=== PATIENT | male | born 1945 | race Caucasian/White ===

== ENCOUNTER 2025-02-26 16:50 | Emergency (ER) | payer MEDICARE, OTHER, SELFPAY ==
--- OUTSIDE RECORDS SUMMARY | 2020-01-22 04:01 | XMS_ITS | Continuity of Care Document ---
Author Organization [facility] Address [address] [address] [place] [address] Phone Care Team Providers Care Supervisor Typesetting Name Role Phone Tennille Goff CRNA Unavailable Unavailable Allergies, Adverse Reactions, Alerts Substance Reaction Status Criticality No Known Allergies Active No Inform ation Medications Medication Instructions Dosage Effective Dates (start - stop) Status Comments atorvastatin 20 mg tablet take 1 tablet by oral route every day 20 MG - Active Synthroid 25 mcg tablet take 1 tablet by oral route every day 25 MCG - Active ATENOLOL (unknown strength) take 1 tablet by oral route every day Not Available - Active Vitamin D3 50 mcg (2,000 unit) capsule take 1 by Oral route every day 1 - Active iron 325 mg (65 mg iron) tablet take 1 by Oral route every day 1 - Active Procedures Procedure Date Colonoscopy Flex; W/remov Les- Level Iv-surg Path Gross/micro Advance Directives Directive Yes / No Effective Date File Name No Information Encounters Encounter Description Practice Location Reason(s) For Visit Diagnoses Date Provider Providers Copied on Encounter [facility], [address] [address], [place], [place], [id number], [place] tel:[phone] Virgil [facility] No Information 0 [place] Null. [address] [facility] [address], [place], [place], [id number], [place]. tel:[phone] Referring Provider: Edilma Hanson, [address] [facility] [address], [place], [address]. tel:[phone] [facility], [address] [address], [place], [id number], [place] tel:[phone] [facility] Colorectal polypsHemorrhoid s, externalHemorrho ids, internalDivertic ulosis of colon without diverticulitisAn emia, unspecifiedBenig n neoplasm of rectumBenign neoplasm of descending colonAnemia, unspecifiedResid ual hemorrhoidal skin tagsBenign neoplasm of descending colonBenign neoplasm of rectum 0 Shalini France. [address] [facility] [address], [place], [id number], [place]. tel:[phone] Referring Provider: Nandini Hubbard MD L, [address] [place] [address], [place], [address]. tel:[phone] [facility], [address] [address], [place], [id number], tel:[phone] [facility] No Information 0 Shalini France. [address] [facility] [address], [place], [id number], [place]. tel:[phone] Family History Family Member Type Diagnosis Age At Onset No Information Immunizations Vaccine Date Status Comments tetanus toxoid, reduced diphtheria toxoid, and acellular pertussis vaccine, adsorbed administered Note: [facility] bi-direct ional interface ; Source: Other Registry Payers Payer name Insurance type Covered democrat ID Authoriza tion(s) [employer] Sr 16 [id number] Social History Type Description Quantity Date Captured Comments Sex Male Smoking Status No Information Chief Complaint And Reason For Visit No Information Reason For Referral Reason For Referral No Information History Of Present Illness Encounter Date Complaint History Of Prese nt Illness No Information Functional Status Date Functional Assessmen t No Information Instructions Date Instruction Additional Infor mation Diverticulosis/Diverticulitis Re lated to Colorectal polyps Colon Polyps Related to Color ectal polyps Hemorrhoids Related to Color ectal polyps Colon Cancer Prevention Related to Colorectal polyps High Fiber Diet Related to Color ectal polyps Assessments Type Assessment Date No Information Patient Care Teams Name Effective Dates (start - stop) Status Members No Information
--- OUTSIDE RECORDS SUMMARY | 2020-01-22 04:01 | XMS_ITS | Continuity of Care Document ---
Author Organization [facility] Address [address] [address] [place] [address] Phone Care Team Providers Care Beauty Shop Manager Name Role Phone Tennille Goff CRNA Unavailable [...] Diagnoses Date Provider Providers Copied on Encounter [facility], [address] [address], [place], [place], [id number], [place] tel:[phone] Virgil [facility] No Information 0 [place] Null. [address] [facility] [address], [place], [place], [id number], [place]. tel:[phone] Referring Provider: Edilma Hanson, [address] [facility] [address], [place], [address]. tel:[phone] [facility], [address] [address], [place], [id number], [place] tel:[phone] [facility] Colorectal polypsHemorrhoid s, externalHemorrho ids, internalDivertic ulosis of colon without diverticulitisAn emia, unspecifiedBenig n neoplasm of rectumBenign neoplasm of descending colonAnemia, unspecifiedResid ual hemorrhoidal skin tagsBenign neoplasm of descending colonBenign neoplasm of rectum 0 Shalini France. [address] [facility] [address], [place], [id number], [place]. tel:[phone] Referring Provider: Nandini Hubbard MD L, [address] [place] [address], [place], [address]. tel:[phone] [facility], [address] [address], [place], [id number], tel:[phone] [facility] No Information 0 Shalini France. [address] [facility] [address], [place], [id number], [place]. tel:[phone] Family History Family Member Type Diagnosis Age At Onset No Information Immunizations Vaccine Date Status Comments tetanus toxoid, reduced diphtheria toxoid, and acellular pertussis vaccine, adsorbed administered Note: [facility] bi-direct ional interface ; Source: Other Registry Payers Payer name Insurance type Covered constitution party ID Authoriza tion(s) [employer] Sr 16 [id number] Social History Type Description Quantity Date Captured [...]
--- OUTSIDE RECORDS SUMMARY | 2025-02-26 16:52 | XMS_ITS | Clinical Summary ---
Author Organization [email or web address] Address [facility] [place] [address] Care Team Providers Care Sap Senior Developer Name Role Phone Gema Hubbard MD Primary Care Prov ider Jason Polanco MD Unavailable Unavailable Allergies No known active allergies Medications hydrocortisone 2.5% creamIndication s:Hemorrhoids, external Apply topically to affected area(s) 4 times daily if needed for Itching. 20 g 1 8 Active blood-glucose meterIndication s:Pre-diabetes As directed. Dispense meter, test strips, lancets covered by pt ins. Abnormal blood sugar 1 Device 9 Active nystatin-triamc inolone (MYCOLOG) creamIndication s:Rash Apply topically to affected area(s) 3 times daily. 120 g 1 1 Active levothyroxine 112 mcg tabletIndicatio ns:History of thyroid cancer Take 1 Tablet (112 mcg) by mouth before breakfast. Take with 125 mcg for total of 237 mcg daily 60 Tablet 3 5 Active levothyroxine 125 mcg tabletIndicatio ns:History of thyroid cancer Take 1 Tablet (125 mcg) by mouth before breakfast. Take with 112 for total of 237 mcg 90 Tablet 3 5 Active atenoloL 25 mg tabletIndicatio ns:Hypertension , essential Take 2 Tablets (50 mg) by mouth once daily. Dose increase at of 07/16/2024 180 Tablet 6 5 Active atorvastatin 40 mg tabletIndicatio ns:Hypercholest eremia,Carotid stenosis, asymptomatic, right Take 1 Tablet (40 mg) by mouth once daily. 90 Tablet 3 5 Active lancetsIndicati ons:Pre-diabete s As directed. Test blood sugar 1 times per day. 90 Each 3 5 Active blood sugar diagnostic (Blood Glucose Test) stripIndication s:Pre-diabetes As directed. Test 1 times per day as needed 90 Each 5 Active lancetsIndicati ons:Pre-diabete s As directed. Test blood sugar 1 times per day. 90 Each 3 1 02/19/20 25 Discontinu ed(Reorder (E-cancel not sent)) blood sugar diagnostic (Blood Glucose Test) stripIndication s:Pre-diabetes As directed. Test 1 times per day.As directed. Test 1 times per day. 90 Each 1 02/19/20 25 Discontinu ed(Reorder (E-cancel not sent)) levothyroxine 112 mcg tabletIndicatio ns:Malignant neoplasm of thyroid gland (HC) TAKE 2 TABLETS ONCE DAILY 180 Tablet 5 02/19/20 25 Discontinu ed(*Patien t states no longer taking) levothyroxine 112 mcg tabletIndicatio ns:Malignant neoplasm of thyroid gland (HC) Take 2 Tablets (224 mcg) by mouth before breakfast. Wait to fill until patient calls. Waiting for mail order may need to fill if does not arrive 60 Tablet 1 5 02/19/20 25 Discontinu ed(*Medica tion adjustment ) atorvastatin 40 mg tabletIndicatio ns:Hypercholest eremia,Carotid stenosis, asymptomatic, right Take 1 Tablet (40 mg) by mouth once daily. 90 Tablet 3 5 02/19/20 25 Discontinu ed(Reorder (E-cancel not sent)) atenoloL 25 mg tabletIndicatio ns:Hypertension , essential Take 2 Tablets (50 mg) by mouth once daily. Dose increase at of 07/16/2024 180 Tablet 5 02/19/20 25 Discontinu ed(Reorder (E-cancel not sent)) Active Problems Problem Noted Date Diagnosed Date History of thyroid cancer 06/01/2022 Overview (01/28/2024): Per up to date [place] [employer] (CONSTANTIN) low risk - For patients with low-risk disease treated with thyroidectomy who have detectable serum thyroglobulin (Tg) levels (with or without remnant ablation), the serum TSH initially can be maintained between 0.1 and 0.5 mU/L. Aspirin intolerance 01/09/2019 Carotid stenosis 04/11/2017 Severe obesity (BMI 35.0-39.9) with comorbidity 07/11/2016 Adenomatous colon polyp 08/26/2014 Overview (11/04/2018): Colonoscopy 08/2014 polyps repeat in 5 years Colonoscopy 10/2018 polyps, repeat in 5 years Routine general medical exam ination at a health care facility 08/29/2011 Overview (08/29/2011): Patient colonoscopy in 2003. Have left now for GI to see when he is due again. He had GI bleed after removal of polyps. Call cholesterol is done today DTP is up to date in 2008 Glucose be done today 08/29/2011 PSA will be done today. We did discuss controversy over PSAs at this current time. Flu shot: Patient declines Patient is due for eye exam. Thinks his dental exam is current. 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 Thyroidectomy 09/13 Radioiodine ablation with 100 mCi 11/11- uptake in thyroid bed only thyrogen scan negative 06/13 stimulated TG negative 06/13 Unstimulated TG Thyroid US 07/15 - benign appearing right cervical lymph nodes; 10/22 5x7 mm probable benign nodule right inferior thyroid bed Encounters Date Type Department Care Team Description 02/18/2025 7:25 AM CDT Office Visit [facility] [address] [place] [address] Gema Hubbard MD Medicare ANNUAL (subsequent) Visit (79 yo male) 02/18/2025 Travel 02/13/2025 Travel 01/27/2025 7:50 AM CDT Office Visit [facility] [address] [place] [address] Gema Hubbard MD Medication Management (Follow up thyroid - needs refills) 01/27/2025 Travel 01/05/2025 Refill [facility] [address] [place] [address] Gema Hubbard MD Refill Request (Levothyroxine) from Last 3 Months Immunizations Immunization Administration Dates Next Due COVID-19 vaccine ([employer] 30mcg/0.3mL) 12YO+ BIVALENT PF, ANDRE 06/01/2022 COVID-19 vaccine ([employer] 30mcg/0.3mL) P F, MDV 05/25/2021,05/02/2021 Td (Age >=7 Years) 12/14/1998 Tdap 05/25/2009 Family History Medical History Relation Name Comments Unknown Brother 1 Heart Disease Brother 2 Cancer Brother 3 leukemia Cardiomyopathy Brother 4 age 46 Other Brother 5 drounding age 1 6 Pneumonia Brother 6 age 2 Other Brother 7 age 2 days Diabetes Daughter 1 SECONDARY TO CO MPLICATIONS OF MENINGITIS Other Daughter 2 LOST A DAUGHTER OF 3 MONTHS TO RAOMN Heart Disease Father HEART ATTACK @ AGE 71 Other Mother ALZHEIMER'S Heart Disease Sister 1 unclear cause may been heart Good Health Sister 2 Good Health Sister 3 Good Health Son 1 Good Health Son 2 Relation Name Status Comments Brother 1 Alive Brother 2 Alive Brother 3 Brother 4 Brother 5 Brother 6 Brother 7 Daughter 1 Daughter 2 Father (Age 71) Mother (Age 93) Sister 1 Sister 2 Alive Sister 3 Alive Son 1 Son 2 Social History Tobacco Use Types Packs/Day Years Used Date Smoking Tobacco: Former Cigarettes 1.5 10 1 965 - 09/10/1974 Smokeless Tobacco: Never Tobacco Cessation:Counseling Given: Not Answered Comments:quit 45 years ago. Alcohol Use Standard Drinks/Week Comments No 0 (1 standard drink = 0.6 oz pur e alcohol) PHQ-2 Answer Date Recorded PHQ-2 TOTAL SCORE 0 02/18/2025 Social Connections Answer Date Recorded Do you often feel lonely or isolated from those around you? 0 01/27/2025 Financial Resource Strain Answer Date R ecorded Difficulty of Paying Living Expenses 3 01/27/2025 Difficulty of Paying Living Expenses Not on file 01/27/2025 Food Insecurity Answer Date Recorded Do you worry your food will run out before you are able to buy more? 1 01/27/2025 Transportation Needs Answer Date Record ed Does lack of transportation keep you from medica l appointments? 1 01/27/2025 Does lack of transportation keep you from work, meetings or getting things that you need? 1 01/27/2025 Housing Stability Answer Date Recorded What is your housing situation today? 1 01/27/2025 Utilities Answer Date Recorded Do you have trouble paying f or utilities (for example, heat, electricity, water, phone)? 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 Gender Identity Not on file Sexual Orientation Not on file Obstetrics History Last Filed Vital Signs Vital Sign Reading Time Taken Comments Blood Pressure 148/72 02/18/2025 8:00 AM CDT Pulse 49 02/18/2025 7:31 AM CDT Temperature 36.6 C (97.9 F) 2022 3:51 PM CDT Respiratory Rate 18 05/02/2021 7:41 AM CDT Oxygen Saturation 95% 02/18/2025 7:31 AM CDT Inhaled Oxygen Concentration - - Weight 107.5 kg (237 lb) 02/18/2025 7:31 AM CDT Height 166.4 cm (5' 5.5) 02/18/2025 7:31 AM CDT Body Mass Index 38.84 02/18/2025 7:31 AM CDT Plan of Treatment Upcoming Encounters Date Type Department Care Team (Late st Contact Info) Description 05/26/2025 8:00 AM CDT Office Visit [facility] [address] [facility] [place] [address] David Nicholas MD [address] [place] [address] Health Maintenance Due Date Last Done Comments Pneumococcal series for age 50+ (1 of 2 - PCV) 11/27/1966 Zoster (shingles) series for age 50+ (1 of 2) 11/27/1966 Tetanus booster 05/25/2019 05/25/2009, 12/14/1998 RSV vaccine for adults or (1 - 1-dose 75+ series) 11/27/2022 COVID-19 vaccine series ( - season) 2024 06/01/2022, 05/25/2021, 05/02/2021 Influenza Vaccine (Season Ended) 2025 BMI (ht and wt on same day) for age 18+ 02/18/2026 02/18/2025, 01/24/2024, 06/01/2022, Additional history exists Depression screening for age 12+ 02/18/2026 02/18/2025, 01/24/2024, 06/01/2022, Additional history exists Medicare Wellness for age 65+ 02/19/2026 02/18/2025, 01/24/2024, 06/01/2022, Additional history exists Tdap Completed 05/25/2009 Hepatitis C screening for age 18-79 Completed 01/01/2017 Hepatitis B series for 19+ Aged Out N o longer eligible based on patient's age to complete this topic Procedures Procedure Name Priority Date/Time Associated Diagnosis Comments TSH Routine 01/27/2025 8:38 AM CDT Malignant neoplasm of thyroid gland (HC) LIPID PANEL W REFLEX MEASURED LDL Routine 01/27/2025 8:38 AM CDT Hypercholesteremia BASIC METABOLIC PANEL Routine 01/27/2025 8:38 AM CDT Hypertension, essential HEMOGLOBIN Routine 01/27/2025 8:38 AM CDT Low hemoglobin ANTI HCV Routine 01/01/2017 8:54 AM CDT Need for hepatitis C screening test from Last 3 Months or Most Recently Relevant to Health Maintenance Results * LIPID PANEL W REFLEX MEASURED LDL (01/27/2025 8:38 AM CDT) CHOLESTEROL, TOTAL 137 <200 mg/dL [facility] HDL CHOLESTEROL 40 > OR = 40 mg/dL [facility] TRIGLYCERIDES 141 <150 mg/dL [facility] LDL-CHOLESTEROL 75 mg/dL (calc) [facility] Comment: Reference range: <100 Desirable range <100 mg/dL for primary prevention; <70 mg/dL for patients with CHD or diabetic patients with > or = 2 CHD risk factors. LDL-C is now calculated using the Hero calculation, which is a validated novel method providing better accuracy than the Friedewald equation in the estimation of LDL-C. Chase SS et al. LON. 2013;310(19): 5335-1351 (http://education.FEMA Guides/faq/PYW004) CHOL/HDLC RATIO 3.4 <5.0 (calc) [facility] NON HDL CHOLESTEROL 97 <130 mg/dL (calc) [facility] Comment: For patients with diabetes plus 1 major ASCVD risk factor, treating to a non-HDL-C goal of <100 mg/dL (LDL-C of <70 mg/dL) is considered a therapeutic option. Blood BLOOD SPECIMEN / Unknown 01/27/2025 8:38 AM CDT 01/27/2025 8:39 AM CDT Narrative [facility] - 01/28/2025 4:07 AM CDT FASTING:YES FASTING: YES us Gema Hubbard MD CHEMISTRY Fi nal Result Stamped [facility] [address] [place] [address], [facility] [address] [place] [address] * TSH (01/27/2025 8:38 AM CDT) TSH 0.55 0.40 - 4.50 mIU/L [facility] Blood BLOOD SPECIMEN / Unknown 01/27/2025 8:38 AM CDT 01/27/2025 8:39 AM CDT Narrative [facility] - 01/28/2025 5:27 AM CDT FASTING:YES FASTING: YES Gema Hubbard MD CHEMISTRY Fi nal Result Performing Organization Address City/[facility]/ZIP Co de Phone Number Stamped [facility] [address] [place] [phone], [facility] [address] [place] [address] * HEMOGLOBIN (01/27/2025 8:38 AM CDT) HEMOGLOBIN 15.2 13.2 - 17.1 g/dL [facility] Blood BLOOD SPECIMEN / Unknown 01/27/2025 8:38 AM CDT 01/27/2025 8:39 AM CDT Narrative [facility] - 01/28/2025 3:04 AM CDT FASTING:YES FASTING: YES Gema Hubbard MD HEMATOLOGY Fi nal Result Performing Organization Address [facility] de Phone Number Stamped [address] [address], [facility] [address] [place] [phone] * (ABNORMAL) BASIC METABOLIC PANEL (01/27/2025 8:38 AM CDT) GLUCOSE 110(H) 65 - 99 mg/dL [facility] Comment: Fasting reference interval For someone without known diabetes, a glucose value between 100 and 125 mg/dL is consistent with prediabetes and should be confirmed with a follow-up test. UREA NITROGEN (BUN) 23 7 - 25 mg/dL [facility] CREATININE 1.17 0.70 - 1.28 mg/dL [facility] EGFR 64 > OR = 60 mL/min/1. 73m2 [facility] BUN/CREATININE RATIO SEE NOTE: 6 - 22 (calc) [facility] Comment: Not Reported: BUN and Creatinine are within reference range. SODIUM 139 135 - 146 mmol/L [facility] POTASSIUM 4.8 3.5 - 5.3 mmol/L [facility] CHLORIDE 105 98 - 110 mmol/L [facility] CARBON DIOXIDE 25 20 - 32 mmol/L [facility] ELECTROLYTE BALANCE 9 7 - 17 mmol/L (calc) [facility] CALCIUM 9.4 8.6 - 10.3 mg/dL [facility] Blood BLOOD SPECIMEN / Unknown 01/27/2025 8:38 AM CDT 01/27/2025 8:39 AM CDT Narrative [facility] - 01/28/2025 4:07 AM CDT FASTING:YES FASTING: YES Gema Hubbard MD CHEMISTRY Fi nal Result Stamped [address] [address], [facility] [address] * ANTI HCV [[id number]] (01/01/2017 8:54 AM CDT) HEPATITIS C ANTIBODY Non-Reacti ve Non-Reacti ve 01/01/2017 5:31 PM CDT [facility] Blood BLOOD SPECIMEN / Unknown Venipuncture / Unknown 01/01/2017 8:54 AM CDT 01/01/2017 8:54 AM CDT Narrative [facility] - 01/01/2017 5:31 PM CDT Antibodies to HCV not detected; does not exclude the possibility of exposure to HCV. Gema Hubbard MD SEND OUTS Fi nal Result [facility] [address] [place] [address], from Last 3 Months or Most Recently Relevant to Health Maintenance Insurance [employer]ICA PRIME [employer] ONLY MEDICARE PART B HB ONLY MEDICA PRIME SOLUTION MEDICA PRIME SOLUTION HB Care Teams Sap Senior Developer Relationship Specialty Start Date End Date Gema Hubbard MD [address] [place] [address] PCP - General 01/01/07 Jason Polanco MD [address] [place] [address] Endocrinology 11/12/12
[2025-02-26 17:41] VITALS: BP 184/70; PULSE 55; RESP 18; TEMP 36.7; O2SAT 96; BMI 37.9
--- NOTE | 2025-02-26 17:50 | ED.BACK ---
HPI - Back Pain/Injury General Time Seen by Provider: 17:50 Date Seen: 02/26/25 Chief Complaint: Back Injury/Pain Stated Complaint: back pain Time Seen by Provider: 02/26/25 17:45 Source: patient, family and RN notes reviewed Mode of arrival: ambulatory Limitations: no limitations History of Present Illness HPI Narrative: Rene is a very pleasant 79-year-old male previously healthy with history of hypothyroidism, hyperlipidemia who comes to the emergency room accompanied by his for evaluation of back pain. 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 The pain has become gradually worse. It was associated with some indigestion but patient took Tums and that seems to have helped. He has some abdominal went pain but states that that is because he needs to have a bowel movement as he skip that this morning. He denies dysuria hematuria. The pain does not radiate into his leg. He does feel better when he standing up. He has had no nausea vomiting fever or chills. Rene takes 400 mg ibuprofen every morning according to his . He did not take any additional medications this afternoon. Upon further discussion Rene thinks that possibly he felt a little something in his low back your when he got up this morning. He has no significant past medical history of back problems Related Data Home Medications ?Medication ?Instructions ?Recorded ?Confirmed atenolol 25 mg tablet 25 mg PO BID 02/26/25 02/26/25 atorvastatin 40 mg tablet 40 mg PO DAILY 02/26/25 02/26/25 levothyroxine 112 mcg tablet 112 mcg PO DAILY 02/26/25 02/26/25 (Synthroid) levothyroxine 125 mcg tablet 125 mcg PO DAILY 02/26/25 02/26/25 (Synthroid) Allergies Allergy/AdvReac Type Severity Reaction Status Date / Time No Known Drug Allergies Allergy Verified 02/26/25 18:10 Review of Systems Status of ROS: Reports: 10 or more systems reviewed and unremarkable except as noted in History and below Const: Denies: fever or chills Eyes: Denies: change in vision ENMT: Denies: nasal congestion Cardio: Denies: chest pain, swelling of feet/ankles, lightheadedness or shortness of breath with exertion Resp: Denies: shortness of breath or cough GI: Reports: abdominal pain (States needs to have a bowel movement); Denies: nausea, vomiting or diarrhea : Denies: painful urination, urinary frequency, urinary urgency or blood in urine Musculo: Reports: back pain; Denies: extremity pain or extremity swelling Integ/Breast: Denies: rash Neuro: Denies: numbness in extremities or weakness in extremities PFSH PFSH Social History Smoking Status: Never smoker Do you use any of these nicotine containing products: None How often do you have a drink containing alcohol: never AUDIT-C Alcohol total score: 0 Non-prescribed substance use: denies use Exam Narrative: Exam Narrative: Patient is alert and oriented. No acute distress. He is lying in a semi recumbent position on the gurney in room 2. EOM is full face symmetrical mentation and speech is normal. Heart with regular rate and rhythm and lungs are clear. Abdomen is soft. No significant tenderness. Palpation over the right low back over the posterior superior iliac spine and crest shows some mild tenderness especially laterally. No pain in the buttock. Full strength and motor in the lower extremities. He has it very good flexion at the hips. He had increased discomfort in his low back with extension.. She is able to ambulate and move about the room without difficulty. Const: Vital Signs, click to edit/add: Vital Signs - 24 hr 02/26/25 17:41 02/26/25 20:06 Temperature 98.1 F Pulse Rate 88 Pulse Rate [Pulse Oximeter] 55 L Respiratory Rate 18 18 Blood Pressure 171/64 H Blood Pressure [Ri ght Upper Arm] 184/70 H Pulse Oximetry 96 96 Oxygen Delivery Me thod Room Air Documenting provider has reviewed patient's vital signs: yes Course Course ED Course: Differential diagnosis includes but is not limited to musculoskeletal discomfort, protruding disc, UTI, kidney stone urinary tract. At this time patient does not have any red flag symptoms. I would like to do a point of care creatinine to ensure that kidney function is appropriate. I do not feel like daily ibuprofen is in excess but would want to make sure that his creatinine is appropriate. For pain it that is okay he is receptive to Toradol 30 mg IM as well as oral Flexeril 5 mg. Will obtain a urinalysis just to ensure no evidence of UTI or hematuria patient is receptive to this plan. Do not feel that he needs to have any radiological studies at this time. Do not feel the abdominal pain is such that the back pain is related but likely related to needing to have a bowel movement as patient has also stated. Reevaluation(s) Reevaluation #1: Patient noted to be feeling better after injection. Urinalysis without evidence of UTI or hematuria. Point of care creatinine 1.3. Vital Signs Vital signs: Initial Vital Signs Temperature 98.1 F 02/26/25 17:41 Temperature Source Temporal Artery Scan 02/26/25 17:41 Pulse Rate 55 L 02/26/25 17:41 Respiratory Rate 18 02/26/25 17:41 Blood Pressure 184/70 H 02/26/25 17:41 Blood Pressure Mean 108 H 02/26/25 17:41 Pulse Oximetry 96 02/26/25 17:41 Oxygen Delivery Method Room Air 02/26/25 17:41 Vital Signs Temperature 98.1 F 02/26/25 17:41 Pulse Rate 55 L 02/26/25 17:41 Respiratory Rate 18 02/26/25 17:41 Blood Pressure 184/70 H 02/26/25 17:41 Pulse Oximetry 96 02/26/25 17:41 Oxygen Delivery Method Room Air 02/26/25 17:41 Temperature 98.1 F 02/26/25 17:41 Pulse Rate 88 02/26/25 20:06 Respiratory Rate 18 02/26/25 20:06 Blood Pressure 171/64 H 02/26/25 20:06 Pulse Oximetry 96 02/26/25 20:06 Oxygen Delivery Method Room Air 02/26/25 17:41 Medications Administered Medications: Discontinued Medications Generic Name Dose Route Start Last Admin Trade Name Freq PRN Reason Stop Dose Admin Cyclobenzaprine HCl 5 mg 02/26/25 17:59 02/26/25 18:08 Cyclobenzaprine Hcl 10 Mg Tablet PO 02/26/25 18:00 5 mg ONCE ONE Administration Ketorolac Tromethamine 30 mg 02/26/25 17:59 02/26/25 18:08 Ketorolac 30 Mg/Ml Inj IM 02/26/25 18:00 30 mg ONCE ONE Administration MDM - Back Pain/Injury MDM Narrative Medical decision making narrative: 1. Low back pain-likely musculoskeletal. No evidence of UTI or hematuria. Patient received Toradol 30 mg and Flexeril 5 mg p.o. in the ED. did appear to be feeling better. He he may continue NSAID of Aleve 1 tablet b.i.d. as needed. Flexeril may be used 5 mg to 10 mg every 8 hours as needed. Did discuss the need to avoid any sedating medications or alcohol with this medicine. Should not be driving with this medicine on board. 2. History of ibuprofen use-check of creatinine 1.3. Recommend staying well hydrated. 3. Hypertension-continue to monitor. Repeat blood pressure is 171 systolic. Did discuss with Rene's need for follow-up and monitoring this. 4. Disposition-home at this time. Return for worsening symptoms and as needed. Lab Data Attestation: I reviewed the patient's lab results. Labs: Lab Results 02/26/25 02/26/25 Range/Units 18:00 19:15 Urine Color Yellow (Yellow) Urine Appearance Clear (Clear) Urine pH 6.0 (5.0-8.5) Ur Specific Cornelius 1.025 (1.000-1.030) Urine Protein Negative (Negative) Urine Glucose (UA) Negative (Negative) Urine Ketones Negative (Negative) Urine Blood Negative (Negative) Urine Nitrite Negative (Negative) Urine Bilirubin Negative (Negative) Urine Urobilinogen 0.2 (0.2-1.0) Ur Leukocyte Esterase Negative (Negative) Urine RBC 0-2 (0-2) Urine WBC 0-2 (0-5) Ur Squamous Epith Cells Few (None-Few) Urine Bacteria None (None) POC Creatinine 1.3 (0.6-1.3) mg/dl Discharge Plan Discharge Clinical Impression: Acute lumbar back pain Qualifiers: Back pain laterality: right Sciatica presence: without sciatica Qualified Code(s): M54.50 - Low back pain, unspecified Patient Disposition: Home, Self-Care Condition: Improved Instructions: Acute Low Back Pain (ED) Additional Instructions: Instead of ibuprofen, you may use Aleve 1 tablet every 12 hours as needed. Flexeril as a muscle relaxer that you may use at night or if you are not working in a tractor. You may use 1/2-1 whole tab every [address] use alcohol as this medication can be sedating. Ice to area of discomfort. Follow-up with your primary MD if you are not improving. This sometimes physical therapy is very helpful in getting you moving again. Return to the emergency room for worsening symptoms and as needed. Prescriptions: No Action atorvastatin 40 mg tablet 40 mg PO DAILY atenolol 25 mg tablet 25 mg PO BID levothyroxine [Synthroid] 125 mcg tablet 125 mcg PO DAILY levothyroxine [Synthroid] 112 mcg tablet 112 mcg PO DAILY Follow Up/Referrals: Provider,Not a Local [Primary Care Provider, Family Practice] Stand Alone Forms: [employer] Info Instructions
[2025-02-26] MEDS: KETOROLAC 30 MG/ML inj IM (18:08)
[2025-02-26] MEDS: CYCLOBENZAPRINE HCL 10 MG TABLET 5 MG PO (18:08)
[2025-02-26 18:33] LABS: Creatinine, Point-of-Care* 1.3 mg/dl (0.6-1.3)
[2025-02-26 19:35] LABS: Appearance Urine Clear (Clear); Bilirubin Urine Negative (Negative); Blood Urine Negative (Negative); Color Urine Yellow (Yellow); Glucose Urine Negative (Negative); Ketones Urine Negative (Negative); Leukocyte Esterase Urine Negative (Negative); Nitrite Urine Negative (Negative); Protein Urine Negative (Negative); Specific Gravity Urine 1.025 (1.000-1.030); Urobilinogen Urine 0.2 (0.2-1.0)
[2025-02-26 19:39] LABS: RBC Urine 0-2 (0-2); Squamous Epithelial Cell Urine Few (None-Few); WBC Urine 0-2 (0-5)
[2025-02-26 20:06] VITALS: BP 171/64; PULSE 88; RESP 18; O2SAT 96
== END 2025-02-26 19:58 | disposition home or self-care (01) ==
PROVIDERS: Emergency Provider Family Medicine
DX: M54.50 Low back pain, unspecified (principal)
CPT/HCPCS: 36415; 81001; 82565; 96372; 99283; 99284; A9270; J1885